=== PATIENT | male | born 1955 | race Caucasian/White ===

== ENCOUNTER 2017-05-22 19:49 | Emergency (ER) | payer MEDICAID, OTHER ==
[~2017-05-22] VITALS: Ht 165.1 cm; Wt 77.3 kg
[2017-05-22 19:56] VITALS: Ht 165.1 cm; Wt 77.3 kg
[2017-05-22] MEDS ORDERED: HYDROmorphONE 1 MG/ML SYG IV STA ×2 (20:11→21:03)
[2017-05-22] MEDS ORDERED: SOD CHLORIDE 0.9% 1,000 ML IV STA ×2 (20:11→20:14)
[2017-05-22] MEDS ORDERED: ONDANSETRON 4 MG INJ IV STA (20:11)
[2017-05-22 20:25] VITALS: RESP 20; TEMP 98.9
[2017-05-22] MEDS ORDERED: LABETALOL HCL 20MG INJ IV ONE (20:30)
[2017-05-22 20:40] LABS: BASOPHIL # 0.1 10^3/ul (0.0-0.1); BASOPHILS % 0.7 % (0.0-2.0); EOSINOPHILS # 0.2 10^3/ul (0.0-0.5); EOSINOPHILS % 1.6 % (0.0-7.0); HEMATOCRIT 44.5 % (42.0-52.0); HEMOGLOBIN 14.8 g/dl (14.0-18.0); LYMPHOCYTES # 4.4 10^3/ul (0.8-2.9); LYMPHOCYTES % 43.4 % (15.0-51.0); MEAN CORPUSCULAR HGB CONC 33.3 g/dl (32.0-37.0); MEAN CORPUSCULAR VOLUME 87.3 fl (82.0-101.0); MEAN PLATELET VOLUME 11.9 fl (7.4-10.4); MONOCYTE # 0.7 10^3/ul (0.3-0.9); MONOCYTES % 7.1 % (0.0-11.0); NEUTROPHIL # 4.8 10^3/ul (1.6-7.5); PLATELET COUNT 229 10^3/UL (140-415); WHITE BLOOD COUNT 10.2 10^3/ul (4.8-10.8)
[2017-05-22 21:01] LABS: ALBUMIN 4.6 g/dl (3.3-4.9); ALBUMIN/GLOBULIN RATIO 1.24; BILIRUBIN,INDIRECT 0.2 mg/dl (0-1.1); BILIRUBIN,TOTAL 0.2 mg/dl (0.2-1.3); CALCIUM 9.9 mg/dl (8.4-10.2); CREATININE 1.01 mg/dl (0.61-1.24); POTASSIUM 3.3 mmol/L (3.5-5.1); TOTAL PROTEIN 8.3 g/dl (6.1-8.1)
[2017-05-22] MEDS ORDERED: HYDROmorphONE 1 MG/ML SYG IM STA (21:01)
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
[2017-05-22] MEDS ORDERED: hydrALAzine 20 MG INJ ONE (21:04)
[2017-05-22 21:17] VITALS: BP 153/91; PULSE 79
[2017-05-22] MEDS ORDERED: hydrALAzine 20 MG INJ IV ONE (21:30)
== END 2017-05-22 21:21 | disposition short-term general hospital (02) ==
LOC: E/R 19:49
DX: T24.031A Burn of unspecified degree of right lower leg, initial encounter (principal); T24.032A Burn of unspecified degree of left lower leg, initial encounter; F17.210 Nicotine dependence, cigarettes, uncomplicated; X19.XXXA Contact with other heat and hot substances, initial encounter; Y92.9 Unspecified place or not applicable
CPT/HCPCS: 36415; 80053; 85025; 96372; 96374; 96375; J0360; J1170; J2405; J7030; Z7502